=== PATIENT | male | born 1995 | race African-American/Black ===

== ENCOUNTER 2017-02-15 06:36 | Outpatient (CLI) | payer OTHER | END 2017-02-15 06:37 | disposition home or self-care (01) | LOC: BICMRI 06:36 | PROVIDERS: ATTEND Nurse Practitioner Family | DX: M54.5 Low back pain (principal); M51.36 Other intervertebral disc degeneration, lumbar region | CPT/HCPCS: 72148 ==

== ENCOUNTER 2017-04-12 12:34 | Outpatient (CLI) | payer OTHER | END 2017-04-12 12:35 | disposition home or self-care (01) | LOC: BICRAD 12:34 | PROVIDERS: ATTEND Neurological Surgery | DX: M54.5 Low back pain (principal); M47.816 Spondylosis without myelopathy or radiculopathy, lumbar region | CPT/HCPCS: 72100 ==

== ENCOUNTER 2017-12-08 21:17 | Emergency (ER) | payer OTHER, SELFPAY ==
[2017-12-08] MEDS ORDERED: Ketorolac Tromethamine 60 MG/2 ML VIAL ONE (21:39)
--- NOTE | 2017-12-08 22:24 | CT ---
CT LUMBAR SPINE NONCONTRAST: 12/08/17 HISTORY: 21-year-old male with acute onset of low back pain and lumbar radiculopathy while weightlifting. FINDINGS: There are five lumbar type vertebrae. There is mild chronic anterior wedging of L1, T12, and T11. 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 There are minimal and mild disc bulges at multiple levels, most prominently at L4-5. At L5-S1, there is sli ght degenerative retrolisthesis of L5 on S1, mild disc space narrowing, and a small central disc prot rusion which abuts the bilateral S1 nerve roots. No high grade degenerative facet changes. There is n eural foraminal stenosis of varying degrees at multiple levels, especially bilaterally at L3-4 and L4 -5, and on the right at L5-S1, due to the developmentally short pedicles. There are no pars interarti cularis defects. IMPRESSION: 1. Mild lumbar spondylosis, especially at L4-5 and L5-S1. 2. No acute compression fracture. 3. For lumbar radiculopathy, noncontrast MRI would be more useful than CT. POS: MARQUISE
== END 2017-12-08 22:40 | disposition home or self-care (01) ==
LOC: ERS 21:17
DX: M54.5 Low back pain (principal)
CPT/HCPCS: 72131; 96372; J1885

== ENCOUNTER 2018-11-21 11:40 | Outpatient (CLI) | payer OTHER ==
--- NOTE | 2018-11-21 12:12 | RAD ---
Exam:Left wrist 3 views HISTORY: A hyperextension injury COMPARISON: None FINDINGS: Intercarpal and radiocarpal joint spaces are preserved. No fracture. No cortical irregulari ty. No periosteal reaction. IMPRESSION: Unremarkable left wrist 3 views. If there is pain or point tenderness, consider immobiliz ation and follow-up imaging.
== END 2018-11-21 11:41 | disposition home or self-care (01) ==
LOC: BICRAD 11:40
PROVIDERS: ATTEND Specialist
DX: S69.82XA Other specified injuries of left wrist, hand and finger(s), initial encounter (principal)